=== PATIENT | male | born 1995 | race Two or more races ===

== ENCOUNTER 2019-07-12 14:56 | Emergency (ER) | payer MEDICAID ==
[~2019-07-12] VITALS: Ht 188 cm; Wt 100.0 kg
[2019-07-12 16:35] VITALS: BP 140/79
== END 2019-07-12 17:17 | disposition home or self-care (01) ==
LOC: ER 15:41
DX: M54.12 Radiculopathy, cervical region (principal)
CPT/HCPCS: 99281